=== PATIENT | female | born 1970 ===

== ENCOUNTER 2020-03-30 12:17 | Emergency (ER) | payer MEDICAID ==
[~2020-03-30] VITALS: Ht 162.6 cm; Wt 52.7 kg
[2020-03-30 12:24] VITALS: BP 142/85
== END 2020-03-30 13:10 | disposition home or self-care (01) ==
LOC: ED 12:47
DX: F17.210 Nicotine dependence, cigarettes, uncomplicated (principal); R52 Pain, unspecified; Z76.0 Encounter for issue of repeat prescription; Z72.9 Problem related to lifestyle, unspecified
CPT/HCPCS: 99281; 99406